=== PATIENT | male | born 1975 | race Caucasian/White ===

== ENCOUNTER 2016-06-13 01:42 | Emergency (ER) | payer MEDICARE, OTHER ==
[2016-06-13 01:47] VITALS: BP 169/107; PULSE 110; RESP 18; TEMP 97.8; O2SAT 95
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
[2016-06-13] MEDS ORDERED: MORPHINE SULFATE 4 MG/ML INJ IV PUSH ONE (04:00)
[2016-06-13] MEDS ORDERED: SODIUM CHLOR 0.9% 1000 ML INJ 1,000 ML IV ONE (04:00)
[2016-06-13] MEDS ORDERED: ONDANSETRON HCL 4 MG/2 ML VIAL IV PUSH ONE (04:00)
[2016-06-13 05:10] LABS: BICARBONATE 21.8 MEQ/L (21.0-32.0); POTASSIUM 3.5 MEQ/L (3.5-5.1)
[2016-06-13] MEDS ORDERED: IOHEXOL 350 MG/ML 10 ML VIAL (for RAD DIAG) IV ONE (05:34)
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
[2016-06-13] MEDS ORDERED: NAPR500 PO (06:31)
[2016-06-13] MEDS ORDERED: ROBA500T PO (06:31)
[2016-06-13] MEDS ORDERED: TRAM50TA PO (06:31)
== END 2016-06-13 06:46 | disposition home or self-care (01) ==
LOC: NEPB 01:42
DX: M54.2 Cervicalgia (principal); S09.90XA Unspecified injury of head, initial encounter; S63.601A Unspecified sprain of right thumb, initial encounter; Z72.0 Tobacco use; Y04.2XXA Assault by strike against or bumped into by another person, initial encounter; Y92.511 Restaurant or cafe as the place of occurrence of the external cause; Y99.0 Civilian activity done for income or pay
CPT/HCPCS: 70450; 70491; 73130; 80048; 96374; 96375; 99284; J2270; J2405; J7030; L3808; Q9967